=== PATIENT | female | born 1995 | race Hispanic/Latino ===

== ENCOUNTER 2019-10-11 22:19 | Emergency (ER) | payer BC, OTHER ==
[2019-10-11] MEDS ORDERED: IBUPROFEN 200 MG TAB PO ONE (22:58)
[2019-10-11] MEDS ORDERED: IBUPROFEN 400 MG TAB ONE (22:58)
--- NOTE | 2019-10-11 23:18 | ER ---
Nurse's Notes [facility] Name: Michelle Ferrara Age: 24 yrs Sex: Female : 1995 Arrival Date: 10/11/2019 Time: 22:22 Bed 28 Private MD: Diagnosis: Viral infection, unspecified Presentation: 10/10 22:56 Chief complaint: Patient states: "I have a runny nose, sore throat, dry cough. I feel vc clammy but am not sure if I am running fever or not. I have not been around anyone who has been sick.". Coronavirus screen: The patient has NOT traveled to a country currently being monitored by the CDC within the last 14 days. Proceed with normal triage procedures. Ebola Screen: No symptoms or risks identified at this time. 22:56 Method Of Arrival: Ambulatory vc 23:02 Initial Sepsis Screen: Does the patient meet any 2 criteria? RR > 20 per min. No. vc Patient's initial sepsis screen is negative. Does the patient have a suspected source of infection? No. Patient's initial sepsis screen is negative. Risk Assessment: Do you want to hurt yourself or someone else? Patient reports no desire to harm self or others. 23:02 Acuity: TANNER 4 vc 23:03 Onset of symptoms was October 11, 2019. vc Triage Assessment: 23:03 General: Appears in no apparent distress. uncomfortable, ill, Behavior is calm, vc cooperative, appropriate for age. Pain: Complains of pain in throat. 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 - Social history:: Smoking status: Patient reports the use of cigarette tobacco products, smokes less than half a pack a day. Screenin:02 Abuse screen: Denies threats or abuse. Nutritional screening: No deficits noted. vc Tuberculosis screening: No symptoms or risk factors identified. Fall Risk None identified. Assessment: 23:35 General: Appears in no apparent distress. uncomfortable, ill, Behavior is calm, vc cooperative, appropriate for age. 23:35 Pain: Complains of pain in throat. Neuro: Level of Consciousness is awake, alert, obeys vc commands, Oriented to person, place, time, situation. Cardiovascular: Capillary refill < 3 seconds Patient's skin is warm and dry. Respiratory: Airway is patent Respiratory effort is even, unlabored, Respiratory pattern is regular, symmetrical. GI: No signs and/or symptoms were reported involving the gastrointestinal system. GI: Reports nausea. : No signs and/or symptoms were reported regarding the genitourinary system. Reports. Derm: Skin temperature is warm. Vital Signs: 22:56 BP 121 / 82; Pulse 73; Resp 21; Temp 98.5; Pulse Ox 100% on R/A; vc 23:00 BP 121 / 82; Pulse 73; Resp 21; Temp 98.5; Pulse Ox 100% on R/A; vc 23:34 BP 123 / 84; Pulse 75; Resp 19; Pulse Ox 100% on R/A; vc ED Course: 22:22 Patient arrived in ED. jg7 22:31 Anel Delgadillo [facility]C [facility]. snw 22:31 Rajinder Alva MD is Attending Physician. snw 22:35 Kimberly Clark RN is Primary Nurse. vc 22:55 Strep Sent. vc 22:55 Flu Sent. vc 23:02 Triage completed. vc 23:03 Arm band placed on. vc 23:04 Patient has correct armband on for positive identification. Pulse ox on. NIBP on. vc 23:36 No provider procedures requiring assistance completed. Patient did not have IV access vc during this emergency room visit. Administered Medications: 22:55 Drug: Motrin 600 mg Route: PO; vc 23:34 Follow up: Response: No adverse reaction; Pain is decreased vc 23:32 Drug: Phenergan 25 mg Route: PO; vc 23:32 Follow up: Response: No adverse reaction; Medication administered at discharge. vc 23:33 Drug: Tamiflu 75 mg Route: PO; vc 23:34 Follow up: Response: No adverse reaction; Medication administered at discharge. vc Outcome: 23:17 Discharge ordered by . snw 23:36 Discharged to home vc 23:36 Condition: good 23:36 Discharge instructions given to patient. 23:37 Patient left the ED. vc Signatures: Anel Delgadillo FNP-C FNP-Csnw Nettie Hernandez jg7 Calcote, Kimberly, RN RN vc
--- NOTE | 2019-10-11 23:18 | EDPHYS ---
Physician Documentation [facility] Name: Michelle Ferrara Age: 24 yrs Sex: Female : 1995 Arrival Date: 10/11/2019 Time: 22:22 Bed 28 Private MD: ED Physician Rajinder Avla HPI: 10/10 22:58 This 24 yrs old Female presents to ER via Unassigned with complaints of Flu snw Symptoms. 22:58 Onset: The symptoms/episode began/occurred suddenly, today. Associated signs and snw symptoms: Pertinent positives: congestion, fever, nasal discharge, fatigue, malaise, myalgias. The patient has not experienced similar symptoms in the past. It is unknown whether or not the patient has recently seen a physician. 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 - Social history:: Smoking status: Patient reports the use of cigarette tobacco products, smokes less than half a pack a day. ROS: 22:56 Eyes: Negative for injury, pain, redness, and discharge. snw 22:56 Neck: Negative for injury, pain, and swelling, Cardiovascular: Negative for chest pain, palpitations, and edema, Respiratory: Negative for shortness of breath, cough, wheezing, and pleuritic chest pain, Abdomen/GI: Negative for abdominal pain, nausea, vomiting, diarrhea, and constipation, Back: Negative for injury and pain, : Negative for injury, bleeding, discharge, and swelling, MS/Extremity: Negative for injury and deformity, Skin: Negative for injury, rash, and discoloration, Neuro: Negative for headache, weakness, numbness, tingling, and seizure, Psych: Negative for depression, anxiety, suicide ideation, homicidal ideation, and hallucinations. 22:56 Constitutional: Positive for body aches, fatigue, fever, malaise. 22:56 ENT: Positive for nasal discharge. Exam: 22:56 Constitutional: This is a well developed, well nourished patient who is awake, alert, snw and in no acute distress. Head/Face: Normocephalic, atraumatic. Eyes: Pupils equal round and reactive to light, extra-ocular motions intact. Lids and lashes normal. Conjunctiva and sclera are non-icteric and not injected. Cornea within normal limits. Periorbital areas with no swelling, redness, or edema. Neck: Trachea midline, no thyromegaly or masses palpated, and no cervical lymphadenopathy. Supple, full range of motion without nuchal rigidity, or vertebral point tenderness. No Meningismus. Chest/axilla: Normal chest wall appearance and motion. Nontender with no deformity. No lesions are appreciated. Cardiovascular: Regular rate and rhythm with a normal S1 and S2. No gallops, murmurs, or rubs. Normal PMI, no JVD. No pulse deficits. Respiratory: Lungs have equal breath sounds bilaterally, clear to auscultation and percussion. No rales, rhonchi or wheezes noted. No increased work of breathing, no retractions or nasal flaring. Abdomen/GI: Soft, non-tender, with normal bowel sounds. No distension or tympany. No guarding or rebound. No evidence of tenderness throughout. Back: No spinal tenderness. No costovertebral tenderness. Full range of motion. Skin: Warm, dry with normal turgor. Normal color with no rashes, no lesions, and no evidence of cellulitis. MS/ Extremity: Pulses equal, no cyanosis. Neurovascular intact. Full, normal range of motion. Neuro: Awake and alert, GCS 15, oriented to person, place, time, and situation. Cranial nerves II-XII grossly intact. Motor strength 5/5 in all extremities. Sensory grossly intact. Cerebellar exam normal. Normal gait. Psych: Awake, alert, with orientation to person, place and time. Behavior, mood, and affect are within normal limits. 22:56 ENT: External ear(s): are unremarkable, Ear canal(s): are normal, TM's: are normal, Nose: nasal drainage, that is moderate, and is seen coming from both nares, that is clear, Mouth: is normal, Posterior pharynx: is normal, Voice: is normal. Vital Signs: 22:56 BP 121 / 82; Pulse 73; Resp 21; Temp 98.5; Pulse Ox 100% on R/A; vc 23:00 BP 121 / 82; Pulse 73; Resp 21; Temp 98.5; Pulse Ox 100% on R/A; vc 23:34 BP 123 / 84; Pulse 75; Resp 19; Pulse Ox 100% on R/A; vc MDM: 22:40 Patient medically screened. snw 23:18 Data reviewed: vital signs, nurses notes. Data interpreted: Pulse oximetry: on room air snw is 100 %. Interpretation: normal. Counseling: I had a detailed discussion with the patient and/or guardian regarding: the historical points, exam findings, and any diagnostic results supporting the discharge/admit diagnosis, the presence of at least one elevated blood pressure reading (>120/80) during this emergency department visit, lab results, the need for outpatient follow up, for definitive care, to return to the emergency department if symptoms worsen or persist or if there are any questions or concerns that arise at home. Special discussion: Based on the history and exam findings, there is no indication for further emergent testing or inpatient evaluation. I discussed with the patient/guardian the need to see the primary care provider for further evaluation of the symptoms. 10/10 22:40 Order name: Flu; Complete Time: 23:16 snw 10/10 22:40 Order name: Strep; Complete Time: 23:16 snw 10/10 23:17 Order name: Throat Culture EDMS Administered Medications: 22:55 Drug: Motrin 600 mg Route: PO; vc 23:34 Follow up: Response: No adverse reaction; Pain is decreased vc 23:32 Drug: Phenergan 25 mg Route: PO; vc 23:32 Follow up: Response: No adverse reaction; Medication administered at discharge. vc 23:33 Drug: Tamiflu 75 mg Route: PO; vc 23:34 Follow up: Response: No adverse reaction; Medication administered at discharge. vc Disposition: 10/11 07:54 Co-signature as Attending Physician, Rajinder Alva MD I agree with the assessment and alex plan of care. Disposition: 10/11/19 23:17 Discharged to Home. Impression: Viral infection, unspecified. - Condition is Stable. - Discharge Instructions: Fever, Adult, Muscle Pain, Adult, Viral Respiratory Infection, Rehydration, Adult. - Prescriptions for promethazine 25 mg Oral Tablet - take 1 tablet by ORAL route every 6 hours As needed; 20 tablet. Tamiflu 75 mg Oral Capsule - take 1 tablet by ORAL route every 12 hours for 5 days; 10 tablet. - Work release form, Medication Reconciliation Form, Thank You Letter, Antibiotic Education, Prescription Opioid Use form. - Follow up: Emergency Department; When: As needed; Reason: Worsening of condition. Follow up: Private Physician; When: 2 - 3 days; Reason: Recheck today's complaints, Continuance of care, Re-evaluation by your physician. Signatures: Dispatcher [employer] Rajinder Piedra, Anel Weller MD, cha, THI-C STOCK REPLENISHER-Kimberly Robledo RN RN vc Corrections: (The following items were deleted from the chart) 10/10 23:37 23:17 10/11/2019 23:17 Discharged to Home. Impression: Viral infection, unspecified. vc Condition is Stable. Forms are Medication Reconciliation Form, Thank You Letter, Antibiotic Education, Prescription Opioid Use. Follow up: Emergency Department; When: As needed; Reason: Worsening of condition. Follow up: Private Physician; When: 2 - 3 days; Reason: Recheck today's complaints, Continuance of care, Re-evaluation by your physician. snw
[2019-10-11] MEDS ORDERED: OSELTAMIVIR 75 MG CAP ONE (23:28)
[2019-10-11] MEDS ORDERED: PROMETHAZINE 25 MG TABLET ONE (23:28)
[2019-10-12 00:15] VITALS: TEMP 98.5; O2SAT 100
[2019-10-12 00:19] VITALS: BP 123/84
== END 2019-10-11 23:37 | disposition home or self-care (01) ==
LOC: ER 22:19
DX: B34.9 Viral infection, unspecified (principal); F17.210 Nicotine dependence, cigarettes, uncomplicated
CPT/HCPCS: 87070; 87081; 87804 ×2; 99283; Q0169